=== PATIENT | female | born 1935 | race Caucasian/White ===

== ENCOUNTER 2018-02-08 14:57 | Observation (INO) | payer OTHER ==
--- NOTE | 2018-02-08 15:09 | PDOC ---
Rapid Medical Evaluation Time Seen by Provider: 02/08/18 15:02 Medical Evaluation: Allergies Allergy/AdvReac Type Severity Reaction Status Date / Time No Known Allergies Allergy Verified 08/21/14 22:57 02/08/18 15:05 Pt. presents to the ED from the clinic for an abscess to her R abdomen. Family states that the abscess started one week ago. No area of fluctuance. No PMHX of diabetes. Exam: hard indurated abscess to the R mid abdomen. No fluctance. Pt afebrile Orders: Labs, Urine Pt to proceed to ED for further evaluation. Discharge Disposition - Diagnosis Abscess - Referrals - Patient Instructions - Post Discharge Activity
--- NOTE | 2018-02-08 16:05 | PDOC ---
History of Present Illness - General Chief Complaint: Abscess Boil Stated Complaint: ABSCESS ON ABDOMEN Time Seen by Provider: 02/08/18 15:02 History Source: Patient, Family - History of Present Illness Initial Comments: 02/08/18 15:59 HPI was performed via the patient and her daughter. 82 year old female with PMH of HTN, brain aneurysm presents to ED complaining of abscess x1 week. She states it has been increasing in size and becoming more red over the last week. She denies fever, chills, nausea, vomiting, lightheadedness, chest pain, shortness of breath. She denies discharge from the abscess but says it has bled. Past History - Past Medical History Allergies/Adverse Reactions: Allergies Allergy/AdvReac Type Severity Reaction Status Date / Time No Known Allergies Allergy Verified 02/08/18 15:02 Home Medications: Ambulatory Orders Acetaminophen [Tylenol -] 500 mg PO Q8H 02/08/18 Amlodipine Besylate [Norvasc -] 2.5 mg PO DAILY 02/08/18 Aspirin [ASA -] 81 mg PO DAILY 02/08/18 Atorvastatin Ca [Lipitor] 40 mg PO HS 02/08/18 Calcium Carbonate [Super Calcium] 600 mg PO DAILY 02/08/18 Magnesium Oxide 500 mg PO DAILY 02/08/18 Melatonin 10 mg PO HS 02/08/18 Riboflavin (Vitamin B2) [Vitamin B-2] 100 mg PO DAILY 02/08/18 COPD: No HTN: Yes Hypercholesterolemia: Yes - Immunization History Immunization Up to Date: Yes - Suicide/Smoking/Psychosocial Hx Smoking Status: No Smoking History: Never smoked Number of Cigarettes Smoked Daily: 0 Hx Alcohol Use: No Review of Systems - Review of Systems Able to Perform ROS?: Yes Comments:: 02/08/18 16:01 General: denies fever, chills, night sweats, generalized weakness. HEENT: denies sore throat, rhinorrhea, ear pain. Heart: denies chest pain, palpitations, syncope, lower extremity swelling. Respiratory: denies shortness of breath, cough, sputum production, hematemesis. Abdomen: denies abdominal pain, nausea, vomiting, diarrhea, constipation, blood in stool. : denies dysuria, urinary frequency, hematuria. Musculoskeletal: denies joint pain, muscle pain, joint swelling. Neurological: denies headache, dizziness, numbness, tingling. Skin: admits to abscess. *Physical Exam - Vital Signs Last Vital Signs Temp Pulse Resp BP Pulse Ox 97.6 F 69 20 126/56 100 02/08/18 15:03 02/08/18 15:03 02/08/18 15:03 02/08/18 15:03 02/08/18 15:03 - Physical Exam Comments: 02/08/18 16:02 Appearance: comfortable. HEENT: head is normocephalic, atraumatic. EOMI. PERRLA. Neck: supple without lymphadenopathy Heart: regular rhythm. no murmurs, rubs or gallops. Lungs: clear to auscultation bilaterally. no crackles, rhonchi or wheezing. no stridor. Abdomen: soft, nontender. normal bowel sounds. no rebound, guarding, masses. Extremities: Peripheral pulses intact. No lower extremity edema. Neurological: Alert. Oriented x3. CN 2-12 grossly intact. Moves all four extremities. Skin: 5x7 mm abscess noted to right upper quandrant. No fluctuance. Indurated with surrounding erythema. irregular borders. ED Treatment Course - LABORATORY CBC & Chemistry Diagram: 02/08/18 15:09 02/08/18 15:09 Medical Decision Making - Medical Decision Making 02/08/18 16:04 82 year old female with PMH HTN and brain aneurysms presents to ED today complaining of progressing abscess over one week without fever, chills, nausea, vomiting, lightheadedness. Initial Vital Signs Temp Pulse Resp BP Pulse Ox 97.6 F 69 20 126/56 100 02/08/18 15:03 02/08/18 15:03 02/08/18 15:03 02/08/18 15:03 02/08/18 15:03 Afebrile. No tachycardia. No hypotension. Pending labs, blood cultures, EKG. 02/08/18 16:34 Bedside ultrasound performed with Dr. Fischer. [place] and 1.7x1.6 underlying abscess 3 cm below skin surface with multiple pockets and no confluence noted. 02/08/18 19:25 Leukocytosis 14.7 Pt will be admitted for cellulitis and abscess requiring IV antibiotics. *DC/Admit/Observation/Transfer Diagnosis at time of Disposition: Abscess - Discharge Dispostion Decision to Admit order: Yes - Referrals - Patient Instructions - Post Discharge Activity
--- NOTE | 2018-02-08 16:20 | PDOC ---
Attending Attestation - HPI HPI: 02/08/18 16:42 The patient is an 82-year-old female, with a past medical history of HTN, hypercholesterolemia, and brain aneurysm, who presents to the ED with an right upper quadrant abscess that began 1 week ago. The abscess has been becoming progressively more large and erythematous over the last few days. The patient denies any fever, chills, nausea, vomiting, diarrhea, or abdominal pain. Denies any chest pain or shortness of breath. Allergies: NKA - Physicial Exam PE: 02/08/18 16:58 GENERAL: Awake, alert, and fully oriented, in no acute distress HEAD: No signs of trauma EYES: PERRLA, EOMI, sclera anicteric, conjunctiva clear ENT: Auricles normal inspection, hearing grossly normal, nares patent, oropharynx clear without exudates. Moist mucosa NECK: Normal ROM, supple, no lymphadenopathy, JVD, or masses LUNGS: Breath sounds equal, clear to auscultation bilaterally. No wheezes, and no crackles HEART: Regular rate and rhythm, normal S1 and S2, no murmurs, rubs or gallops ABDOMEN: (+)RUQ: There is a 5x7cm warm, erythematous, indurated, potential abscess. No areas of flunctuance. Soft, nontender, normoactive bowel sounds. No guarding, no rebound. EXTREMITIES: Normal range of motion, no edema. No clubbing or cyanosis. No cords, erythema, or tenderness NEUROLOGICAL: Cranial nerves II through XII grossly intact. Normal speech, normal gait SKIN: Warm, Dry, normal turgor, no rashes or lesions noted <Gia Chamorro - Last Filed: 02/08/18 16:57> - Resident Resident Name: Kellie Raymond - ED Attending Attestation I have performed the following: I have examined & evaluated the patient, The case was reviewed & discussed with the resident, I agree w/resident's findings & plan, Exceptions are as noted - Medical Decision Making 02/08/18 16:20 I, Dr. Amaris Fischer, DO, attest that this document has been prepared under my direction and personally reviewed by me in its entirety. I further attest, that it accurately reflects all work, treatment, procedures and medical decision -making performed by me. 02/08/18 16:34 a/p: 82yo female with R upper abd abscess/fluctuance/induration -subjective fevers at home -no drainage -7x5cm in size, indurated -bedside ultrasound shows small abscess 1.7x1.6cm about 3cm below the skin - multiple pockets- not confluent -concern for MRSA potential abscess -will start iv abx -warm compresses -obs overnight -no PMD -will place on SYMPHONY OBS 02/08/18 18:09 case discussed with [facility] who requested consult to Dr. Merino accepts pt to obs <Amaris Fischer - Last Filed: 02/08/18 18:09> Heart Score/ECG Review - ECG Intrepretation Comment:: 02/08/18 16:41 sinus at 61, incomplete RBBB, l espinal axis, no acute st/t wave findings <Amaris Fischer - Last Filed: 02/08/18 18:09> Attestations - Attestations 02/08/18 17:01 Documentation prepared by Gia Chamorro, acting as emergency medical technician basic for Amaris Fischer DO. <Gia Chamorro - Last Filed: 02/08/18 16:57>
[2018-02-08 16:40] LABS: ALBUMIN 3.9 g/dl (3.4-5.0); ALK PHOS 98 U/L (45-117); ANION GAP 7 (8-16); BILIRUBIN,TOTAL 0.9 mg/dL (0.2-1.0); BLOOD UREA NITROGEN 15 mg/dL (7-18); CALCIUM 9.2 mg/dL (8.5-10.1); CHLORIDE 106 mmol/L (98-107); CO2 29 mmol/L (21-32); CREATININE 0.8 mg/dL (0.55-1.02); GLUCOSE,RANDOM 99 mg/dL (74-106); POTASSIUM 4.5 mmol/L (3.5-5.1); SGOT/AST 15 U/L (15-37); SGPT/ALT 17 U/L (12-78); SODIUM 142 mmol/L (136-145); TOT PROT 7.5 g/dl (6.4-8.2)
[2018-02-08 16:40] LABS: INR 1.13 (0.82-1.09); PROTHROMBIN TIME (PATIENT) 12.8 SEC (9.7-13.0)
[2018-02-08] MEDS ORDERED: VANCOMYCIN 1,000 MG in DEXTROSE 5%-WATER - 250 ML IVPB ONE (16:42)
[2018-02-08] MEDS ORDERED: VANCOMYCIN 1 GRAM (PRE-DOCKED) 1,000 MG/250 ML BAG IVPB ONE (17:54)
[2018-02-08 18:00] LABS: BASO % 0.4 % (0-2.0); EOS % 0.5 % (0-4.5); HEMATOCRIT 36.1 % (32.4-45.2); HEMOGLOBIN 11.7 GM/dL (10.7-15.3); LYMPH % 13.9 % (8-40); MCH 28.8 pg (25.7-33.7); MCHC 32.4 g/dl (32.0-36.0); MEAN CELL VOLUME 89.1 fl (80-96); MEAN PLT VOLUME 11.4 fl (7.5-11.1); NEUT % 78.2 % (42.8-82.8); PLATELET COUNT 234 K/MM3 (134-434); RBC 4.05 M/mm3 (3.60-5.2); RDW 13.2 % (11.6-15.6); WHITE BLOOD COUNT 14.7 K/mm3 (4.0-10.0)
[2018-02-08 18:44] LABS: URINE APPEARANCE CLEAR; URINE BILIRUBIN NEGATIVE (<2.0 mg/dL); URINE COLOR YELLOW; URINE GLUCOSE (UA) NEGATIVE (NEGATIVE); URINE KETONE NEGATIVE (NEGATIVE); URINE NITRITE NEGATIVE (NEGATIVE); URINE PROTEIN NEGATIVE (NEGATIVE); URINE UROBILINOGEN NEGATIVE mg/dL (0.2-1.0)
[2018-02-08 18:45] LABS: URINE LEUK ESTERASE 3+ (NEGATIVE)
[2018-02-08 18:51] LABS: EPI CELLS RARE /HPF (FEW); URINE MUCUS RARE
--- NOTE | 2018-02-08 21:58 | HP ---
CHIEF COMPLAINT: cyst on abdomen PCP: HISTORY OF PRESENT ILLNESS: 82 y/o female with PMH HTN, HLD, brain aneyrysm presents with complaint of worsening abscess over right upper quadrant abdomen. Began one week ago as a small nolasco pimple that she admits to attempting to squeeze. She admits bloody discharge. The size has gradually progressed with associated induration and erythema. States her friend attempted to open a capsule of unknown antibiotic and sprinkled over the wound, which was not palliative. Admits to pinching pain localized to the wound that has been constant, exacerbated with movement. Has also taken one tablet unknown dosage of tylenol which was temporarily palliative. Denies fevers, chills, shortness of breath, chest pain, abdominal pain, nausea, vomiting, diarrhea, constipation. ER course was notable for: (1) Vancomycin- patient complained of itchyness of face and head, was given benadryl which resolved the symptoms. (2) (3) Recent Travel: PAST MEDICAL HISTORY: HTN, HLD, brain aneyrysm PAST SURGICAL HISTORY: brain aneyrsym repair in Social History: Smoking: admits to smoking 4-5 cigarettes Alcohol: denies Drugs: denies Family History: Allergies No Known Allergies Allergy (Verified 02/08/18 15:02) HOME MEDICATIONS: Home Medications Medication Instructions Recorded Acetaminophen [Tylenol -] 500 mg PO Q8H 02/08/18 Amlodipine Besylate [Norvasc -] 2.5 mg PO DAILY 02/08/18 Aspirin [ASA -] 81 mg PO DAILY 02/08/18 Atorvastatin Ca [Lipitor] 40 mg PO HS 02/08/18 Calcium Carbonate [Super Calcium] 600 mg PO DAILY 02/08/18 Magnesium Oxide 500 mg PO DAILY 02/08/18 Melatonin 10 mg PO HS 02/08/18 Riboflavin (Vitamin B2) [Vitamin 100 mg PO DAILY 02/08/18 B-2] REVIEW OF SYSTEMS As per HPI PHYSICAL EXAMINATION Vital Signs - 24 hr 02/08/18 02/08/18 15:03 20:06 Temperature 97.6 F 98.7 F Pulse Rate 69 Pulse Rate [ 72 Left Radial] Respiratory 20 16 Rate Blood Pressure 126/56 Blood Pressure 144/56 [Right Arm] O2 Sat by Pulse 100 Oximetry (%) GENERAL: Awake, alert, and fully oriented, in no acute distress. HEAD: Normal with no signs of trauma. EYES: Pupils equal, round and reactive to light, extraocular movements intact, sclera anicteric, conjunctiva clear. EARS, NOSE, THROAT: Ears normal, nares patent, oropharynx clear without exudates. Moist mucous membranes. NECK: Normal range of motion, supple without lymphadenopathy. LUNGS: Breath sounds equal, clear to auscultation bilaterally. No wheezes, and no crackles. No accessory muscle use. HEART: Regular rate and rhythm, normal S1 and S2 with holosystolic murmur, rub or gallop. ABDOMEN: Soft, nontender, not distended, normoactive bowel sounds, no guarding, no rebound, no masses. MUSCULOSKELETAL: Normal range of motion at all joints. No bony deformities or tenderness. No CVA tenderness. EXTREMITIES: 2+ pulses, warm, well-perfused. No cyanosis. 1+ lower extremity peripheral edema. NEUROLOGICAL: Cranial nerves II-XII intact. Normal speech. PSYCHIATRIC: Cooperative. Appropriate mood and affect. SKIN: Abscess: Erythema 8cm X 4cm right upper quadrant abdomen with central induration of 3cm X 3cm. Nodular, with multiple points of bloody and purulent discharge. Tender to palpation. Laboratory Results - last 24 hr 02/08/18 02/08/18 02/08/18 15:09 15:09 15:10 WBC 14.7 H RBC 4.05 Hgb 11.7 Hct 36.1 MCV 89.1 MCH 28.8 MCHC 32.4 RDW 13.2 Plt Count 234 MPV 11.4 H Absolute Neuts (auto) 11.5 Neutrophils % 78.2 Lymphocytes % 13.9 Monocytes % 7.0 Eosinophils % 0.5 Basophils % 0.4 Nucleated RBC % 0 PT with INR INR Sodium 142 Potassium 4.5 Chloride 106 Carbon Dioxide 29 Anion Gap 7 L BUN 15 Creatinine 0.8 Creat Clearance w eGFR > 60 Random Glucose 99 Lactic Acid 0.9 Calcium 9.2 Total Bilirubin 0.9 AST 15 ALT 17 Alkaline Phosphatase 98 Total Protein 7.5 Albumin 3.9 Urine Color Urine Appearance Urine pH Ur Specific [place] Urine Protein Urine Glucose (UA) Urine Ketones Urine Blood Urine Nitrite Urine Bilirubin Urine Urobilinogen Ur Leukocyte Esterase Urine WBC (Auto) Urine RBC (Auto) Ur Epithelial Cells Urine Mucus 02/08/18 02/08/18 16:05 17:50 WBC RBC Hgb Hct MCV MCH MCHC RDW Plt Count MPV Absolute Neuts (auto) Neutrophils % Lymphocytes % Monocytes % Eosinophils % Basophils % Nucleated RBC % PT with INR 12.80 INR 1.13 Sodium Potassium Chloride Carbon Dioxide Anion Gap BUN Creatinine Creat Clearance w eGFR Random Glucose Lactic Acid Calcium Total Bilirubin AST ALT Alkaline Phosphatase Total Protein Albumin Urine Color Yellow Urine Appearance Clear Urine pH 6.0 Ur Specific [place] 1.020 Urine Protein Negative Urine Glucose (UA) Negative Urine Ketones Negative Urine Blood 2+ H Urine Nitrite Negative Urine Bilirubin Negative Urine Urobilinogen Negative Ur Leukocyte Esterase 3+ H Urine WBC (Auto) 15 Urine RBC (Auto) 3 Ur Epithelial Cells Rare Urine Mucus Rare ASSESSMENT/PLAN: 82 y/o female with PMH HTN, HLD, brain aneyrysm presents with complaint of worsening abscess over right upper quadrant abdomen. RUQ skin abscess -Clindamycin -Warm compress -Surgical consult requested for I&D -Percoset 5/325 Q8 PRN HTN -Continue Norvasc HLD -Continue Lipitor FEN -Patient can tolerate PO fluids -Electrolytes WNL -Sodium controlled diet Prophylaxis- Heparin 5000u subq tid Disposition: Observation Advance directives: Full code Case discussed with coke production heater attending Visit type - Emergency Visit Emergency Visit: Yes ED Registration Date: 02/08/18 Care time: The patient presented to the Emergency Department on the above date and was hospitalized for further evaluation of their emergent condition. - New Patient This patient is new to me today: Yes Date on this admission: 02/09/18 - Critical Care Critical Care patient: No Hospitalist Screening - Colonoscopy Questionnaire Colonoscopy Questionnaire: Colonoscopy Questionnaire - Patient: 50 - 75 years old and never had a screening colonoscopy: Unknown History of colon or rectal polyps, or CA: Unknown History of IBD, Crohn's disease or UC: Unknown History of abdominal radiation therapy as a child: Unknown - Relative: 1 with colon or rectal CA, or polyps at age 60 or younger: Unknown Colon or rectal CA diagnosed at age 45 or younger: Unknown Multiple relatives with colon or rectal CA: Unknown - Outcome: Screening Result: Negative Screen
[2018-02-08] MEDS: ACETAMINOPHEN 325 MG TABLET (FP) PO PRN (22:44)
[2018-02-08] MEDS: CLINDAMYCIN 600MG PREMIX IVPB 600 MG/50 ML BAG IVPB SCH (22:44)
[2018-02-09 00:08] VITALS: BMI 31.8
[2018-02-09] MEDS: CLINDAMYCIN 600MG PREMIX IVPB 600 MG/50 ML BAG IVPB SCH ×3 (02:03→17:31)
--- NOTE | 2018-02-09 05:15 | CONSULT ---
Consult Consult Specialty:: general surgery Referred by:: Winston Reason for Consultation:: Abdominal abscess - History of Present Illness Chief Complaint: abdominal abscess History of Present Illness: 82 yo female PMH HTN, HLD, brain aneurysm presents with complaint of worsening abscess over right upper quadrant abdomen. Began one week ago as a small nolasco pimple that she admits to attempting to squeeze. She admits bloody discharge. The size has gradually progressed with associated induration and erythema. States her friend attempted to open a capsule of unknown antibiotic and sprinkled over the wound, which was not palliative. Admits to pinching pain localized to the wound that has been constant, exacerbated with movement. Has also taken one tablet unknown dosage of tylenol which was temporarily palliative. Denies fevers and chills. We were asked to assess. - History Source History Provided By: Patient, Medical Record Limitations to Obtaining History: No Limitations - Alcohol/Substance Use Hx Alcohol Use: No - Smoking History Smoking history: Never smoked Have you smoked in the past 12 months: No Aproximately how many cigarettes per day: 0 Home Medications - Allergies Allergies/Adverse Reactions: Allergies Allergy/AdvReac Type Severity Reaction Status Date / Time No Known Allergies Allergy Verified 02/08/18 15:02 - Home Medications Home Medications: Ambulatory Orders Acetaminophen [Tylenol -] 500 mg PO Q8H 02/08/18 Amlodipine Besylate [Norvasc -] 2.5 mg PO DAILY 02/08/18 Aspirin [ASA -] 81 mg PO DAILY 02/08/18 Atorvastatin Ca [Lipitor] 40 mg PO HS 02/08/18 Calcium Carbonate [Super Calcium] 600 mg PO DAILY 02/08/18 Magnesium Oxide 500 mg PO DAILY 02/08/18 Melatonin 10 mg PO HS 02/08/18 Riboflavin (Vitamin B2) [Vitamin B-2] 100 mg PO DAILY 02/08/18 Review of Systems - Review of Systems Constitutional: denies: Chills, Fever Eyes: denies: Blurred Vision, Recent Change in Vision HENT: denies: Difficult Swallowing, Throat Pain Neck: denies: Pain on Movement, Tenderness Cardiovascular: denies: Chest Pain, Palpitations Respiratory: denies: Cough, SOB Genitourinary: denies: Discharge, Dysuria Breasts: reports: No Symptoms Reported. denies: Pain Musculoskeletal: denies: Muscle Pain, Muscle Weakness Integumentary: reports: Erythema Neurological: denies: Seizure, Syncope Endocrine: denies: Unexplained Weight Gain, Unexplained Weight Loss Hematology/Lymphatic: denies: Easily Bruised, Excessive Bleeding Psychiatric: denies: Anxiety, Depression Physical Exam Vital Signs: Vital Signs Temperature 99.2 F 02/09/18 02:00 Pulse Rate 69 02/09/18 02:00 Respiratory Rate 20 02/09/18 02:00 Blood Pressure 124/63 02/09/18 02:00 O2 Sat by Pulse Oximetry (%) 100 02/08/18 15:03 Constitutional: Yes: No Distress, Calm, Obese Cardiovascular: Yes: Regular Rate and Rhythm Respiratory: Yes: Regular, CTA Bilaterally Gastrointestinal: Yes: Normal Bowel Sounds, Soft, Abdomen, Obese, Tenderness ( RUQ, 8X8cm patch of erythema and induration with a central carbuncle). No: Hernia ...Rectal Exam: Yes: Deferred Renal/: No: CVA Tenderness - Left, CVA Tenderness - Right Extremities: No: Cool, Cyanosis Wound/Incision: Yes: Draining, Reddened (RUQ, 8X8cm patch of erythema and induration with a central carbuncle) Neurological: Yes: Alert, Oriented Psychiatric: Yes: Alert, Oriented Labs: CBC, BMP 02/08/18 15:09 02/08/18 15:09 Imaging - Results Chest X-ray: Report Reviewed, Image Reviewed Problem List - Problems (1) Carbuncle and furuncle of trunk Assessment/Plan: 82yo female MMP non-diabetic IVF hydration empiric IV antibitics ID consult Bedside I&D of abdominal wall abscess Discussed with patient risks, benefits and alternatives of aforementioned procedure, including but not limited to bleeding, infection, need for further procedures, ; alternatives include antibiotics, delayed or no surgery - risks of this include failure of nonoperative therapy, sepsis, recurrence, . Patient desires to proceed with operation - will take to OR for above. Informed consent signed for same. Thank you for the opportunity to participate in the care of this patient. Code(s): L02.229 - FURUNCLE OF TRUNK, UNSPECIFIED (2) Obesity (BMI 30.0-34.9) Code(s): E66.9 - OBESITY, UNSPECIFIED (3) Vertigo Code(s): R42 - DIZZINESS AND GIDDINESS (4) HTN (hypertension) Code(s): I10 - ESSENTIAL (PRIMARY) HYPERTENSION Qualifiers: Hypertension type: essential hypertension Qualified Code(s): I10 - Essential (primary) hypertension (5) HLD (hyperlipidemia) Code(s): E78.5 - HYPERLIPIDEMIA, UNSPECIFIED
--- NOTE | 2018-02-09 06:25 | PN ---
Teaching Attending Note Name of Resident: Gerardo Han ATTENDING PHYSICIAN STATEMENT I saw and evaluated the patient. I reviewed the resident's note and discussed the case with the resident. I agree with the resident's findings and plan as documented. SUBJECTIVE: 82 y/o F presented to ED c/o RUQ abscess, with redness and pain. OBJECTIVE: GEN: A&Ox3 in mild distress, afebrile HEENT: NC, PERRLA, EOMI CVS: RRR Lungs: CTA, no wheezing Abd: RUQ with 5cm erythematous induration with papular lesion 2.5cm in the center with multiple pinpoint areas with purulent and sanguinous drainage, tender. Ext: nl ROM CBCD WBC 14.7 K/mm3 (4.0-10.0) H 02/08/18 15:09 RBC 4.05 M/mm3 (3.60-5.2) 02/08/18 15:09 Hgb 11.7 GM/dL (10.7-15.3) 02/08/18 15:09 Hct 36.1 % (32.4-45.2) 02/08/18 15:09 MCV 89.1 fl (80-96) 02/08/18 15:09 MCHC 32.4 g/dl (32.0-36.0) 02/08/18 15:09 RDW 13.2 % (11.6-15.6) 02/08/18 15:09 Plt Count 234 K/MM3 (134-434) 02/08/18 15:09 MPV 11.4 fl (7.5-11.1) H 02/08/18 15:09 CMP Sodium 142 mmol/L (136-145) 02/08/18 15:09 Potassium 4.5 mmol/L (3.5-5.1) 02/08/18 15:09 Chloride 106 mmol/L (98-107) 02/08/18 15:09 Carbon Dioxide 29 mmol/L (21-32) 02/08/18 15:09 Anion Gap 7 (8-16) L 02/08/18 15:09 BUN 15 mg/dL (7-18) 02/08/18 15:09 Creatinine 0.8 mg/dL (0.55-1.02) 02/08/18 15:09 Creat Clearance w eGFR > 60 (>60) 02/08/18 15:09 Calcium 9.2 mg/dL (8.5-10.1) 02/08/18 15:09 Total Bilirubin 0.9 mg/dL (0.2-1.0) 02/08/18 15:09 AST 15 U/L (15-37) 02/08/18 15:09 ALT 17 U/L (12-78) 02/08/18 15:09 Alkaline Phosphatase 98 U/L (45-117) 02/08/18 15:09 Total Protein 7.5 g/dl (6.4-8.2) 02/08/18 15:09 Albumin 3.9 g/dl (3.4-5.0) 02/08/18 15:09 ASSESSMENT AND PLAN: Abdominal Abscess- Admit for IV antibiotics clindamycin and surgery consult for I&D. percocet PRN for pain Continue home medications.
[2018-02-09] MEDS: HEPARIN NA (PORCINE) 5,000 UNITS/ML 1ML VIAL SQ SCH ×3 (06:26→22:23)
[2018-02-09 07:25] LABS: BASO % 0.5 % (0-2.0); HEMATOCRIT 33.5 % (32.4-45.2); HEMOGLOBIN 11.1 GM/dL (10.7-15.3); LYMPH % 17.2 % (8-40); MCH 29.3 pg (25.7-33.7); MCHC 33.2 g/dl (32.0-36.0); MEAN CELL VOLUME 88.5 fl (80-96); MEAN PLT VOLUME 10.9 fl (7.5-11.1); MONO % 9.5 % (3.8-10.2); NEUT % 71.8 % (42.8-82.8); PLATELET COUNT 195 K/MM3 (134-434); RBC 3.79 M/mm3 (3.60-5.2); RDW 13.5 % (11.6-15.6); WHITE BLOOD COUNT 15.7 K/mm3 (4.0-10.0)
[2018-02-09 07:33] LABS: ALBUMIN 3.3 g/dl (3.4-5.0); ANION GAP 8 (8-16); BLOOD UREA NITROGEN 16 mg/dL (7-18); CALCIUM 8.8 mg/dL (8.5-10.1); CHLORIDE 105 mmol/L (98-107); CO2 28 mmol/L (21-32); GLUCOSE,RANDOM 97 mg/dL (74-106); POTASSIUM 4.3 mmol/L (3.5-5.1); SODIUM 141 mmol/L (136-145)
[2018-02-09 07:39] LABS: ALK PHOS 88 U/L (45-117); BILIRUBIN,TOTAL 0.8 mg/dL (0.2-1.0); CREATININE 0.8 mg/dL (0.55-1.02); SGOT/AST 12 U/L (15-37); SGPT/ALT 15 U/L (12-78); TOT PROT 6.5 g/dl (6.4-8.2)
[2018-02-09] MEDS ORDERED: LIDOCAINE HCL 1%, 10 MG/ML (50 mL VIAL) SQ ONE (08:57)
--- NOTE | 2018-02-09 09:11 | PROC ---
Incision and Drainage Indication/Location: Right abdominal wall abscess/ carbuncle draining spontaneously Risks and Benefits Explained: Yes Consent on Chart: Yes Betadine cleansed: Yes Anesthesia: 1% Lidocaine Blade Size: 10 Drainage: 5ml non-foul smelling pus, culture sent Irrigated with Normal Saline: Yes Iodinated Packin/2 in Sterile Dressing Applied: Yes
[2018-02-09] MEDS ORDERED: LIDOCAINE HCL 1%, 10 MG/ML (20ML VIAL) ONE (09:31)
[2018-02-09] MEDS: amLODIPine BESYLATE 2.5 MG TABLET (FP) PO SCH (10:37)
--- NOTE | 2018-02-09 13:47 | ECHO ---
Name: YELENA SORTO Exam:Adult Echocardiogram Study Date: 02/09/2018 11:40 AM Age: 82 yrs Reason For Study: Monse Height: 64 in Weight: 185 lb BSA: 1.9 m2 MMode/2D Measurements & Calculations IVSd: 1.0 cm Ao root diam: 2.6 cm LVIDd: 4.4 cm LA dimension: 2.5 cm LVIDs: 3.0 cm LVPWd: 1.0 cm EDV(Teich): 89.5 ml LAV (MOD-bp): 45.2 ml ESV(Teich): 33.6 ml Doppler Measurements & Calculations MV E max bandar: 71.0 cm/sec Ao V2 max: 286.5 cm/sec MV A max bandar: 93.0 cm/sec Ao max P.8 mmHg MV E/A: 0.76 Ao V2 mean: 186.3 cm/sec MV dec time: 0.37 sec Ao mean P.4 mmHg Ao V2 VTI: 59.0 cm AI P1/2t: 384.0 msec AI max badnar: 416.0 cm/sec LV V1 max P.0 mmHg AI max P.2 mmHg LV V1 mean P.3 mmHg LV V1 max: 99.9 cm/sec AI dec slope: 317.3 cm/sec2 LV V1 mean: 72.7 cm/sec LV V1 VTI: 23.3 cm TR max bandar: 260.8 cm/sec Med Peak E' Bandar: 11.0 cm/sec TR max P.3 mmHg Med E/e': 6.5 Lat Peak E' Bandar: 9.2 cm/sec Lat E/e': 7.7 Procedure A complete two-dimensional transthoracic echocardiogram was performed (2D, M-mode, Doppler and color flow Doppler). Left Ventricle The left ventricular size, thickness and function are normal. The left ventricular ejection fraction is normal. Ejection Fraction = 60-65%. The left ventricular wall motion is normal. Right Ventricle The right ventricle is normal in size and function. Atria Normal left and right atrial size and function. Mitral Valve There is mild mitral regurgitation. Tricuspid Valve There is trace tricuspid regurgitation. Right ventricular systolic pressure is normal. Aortic Valve Mild to moderate valvular aortic stenosis. Mild to moderate aortic regurgitation. Pulmonic Valve There is no pulmonic valvular regurgitation. Great Vessels The aortic root is normal size. Pericardium/Pleura There is no pericardial effusion. Interpretation Summary The left ventricular size, thickness and function are normal. The right ventricle is normal in size and function. There is mild mitral regurgitation. There is trace tricuspid regurgitation. Mild to moderate valvular aortic stenosis. Mild to moderate aortic regurgitation. MD Mateo Ferris 02/09/2018 01:46 PM
--- NOTE | 2018-02-09 14:31 | EKG ---
Test Reason : Blood Pressure : / mmHG Vent. Rate : 061 BPM Atrial Rate : 061 BPM P-R Int : 136 ms QRS Dur : 104 ms QT Int : 420 ms P-R-T Axes : 049 -14 009 degrees QTc Int : 422 ms NORMAL SINUS RHYTHM INCOMPLETE RIGHT BUNDLE BRANCH BLOCK BORDERLINE ECG WHEN COMPARED WITH ECG OF 29-SEP-2010 22:57, INCOMPLETE RIGHT BUNDLE BRANCH BLOCK IS NOW PRESENT MINIMAL CRITERIA FOR ANTERIOR INFARCT ARE NO LONGER PRESENT Confirmed by ASHLEY PORTER MD ([id number]) on 02/09/2018 2:31:15 PM Referred By: Confirmed By:ASHLEY PORTER MD
--- NOTE | 2018-02-09 15:06 | PN ---
Physical Exam: SUBJECTIVE: Patient seen and examined this morning at bedside. Says she is feeling better since admission. Denies fevers, chills, chest pain, SOB, nausea, vomiting, diarrhea, constipation. OBJECTIVE: Vital Signs Period Temp Pulse Resp BP Sys/Blum Pulse Ox Last 24 Hr 97.6 F-99.2 F 63-73 16-20 124-144/50-63 100 GENERAL: The patient is awake, alert, and fully oriented, in no acute distress. LUNGS: Breath sounds equal, clear to auscultation bilaterally, no wheezes, no crackles HEART: Regular rate and rhythm, S1, S2, Holosystolic murmur. No rub or gallop. ABDOMEN: Soft, nontender, nondistended, normoactive bowel sounds EXTREMITIES: 2+ pulses, 1+ edema b/l SKIN: Superfiscial RUQ Abscess with surrounding erythema measuring 7cm X 4cm, Central induration with purulent and bloody discharge, Tender to palpation, without surrounding swelling Laboratory Results - last 24 hr 02/08/18 02/08/18 02/08/18 15:09 15:09 15:10 WBC 14.7 H RBC 4.05 Hgb 11.7 Hct 36.1 MCV 89.1 MCH 28.8 MCHC 32.4 RDW 13.2 Plt Count 234 MPV 11.4 H Absolute Neuts (auto) 11.5 Neutrophils % 78.2 Lymphocytes % 13.9 Monocytes % 7.0 Eosinophils % 0.5 Basophils % 0.4 Nucleated RBC % 0 PT with INR INR Sodium 142 Potassium 4.5 Chloride 106 Carbon Dioxide 29 Anion Gap 7 L BUN 15 Creatinine 0.8 Creat Clearance w eGFR > 60 Random Glucose 99 Lactic Acid 0.9 Calcium 9.2 Total Bilirubin 0.9 AST 15 ALT 17 Alkaline Phosphatase 98 Total Protein 7.5 Albumin 3.9 Urine Color Urine Appearance Urine pH Ur Specific [place] Urine Protein Urine Glucose (UA) Urine Ketones Urine Blood Urine Nitrite Urine Bilirubin Urine Urobilinogen Ur Leukocyte Esterase Urine WBC (Auto) Urine RBC (Auto) Ur Epithelial Cells Urine Mucus Blood Type Antibody Screen Antibody Identification Antigen Identification 02/08/18 02/08/18 02/09/18 16:05 17:50 06:30 WBC 15.7 H RBC 3.79 Hgb 11.1 Hct 33.5 MCV 88.5 MCH 29.3 MCHC 33.2 RDW 13.5 Plt Count 195 MPV 10.9 Absolute Neuts (auto) 11.3 Neutrophils % 71.8 Lymphocytes % 17.2 D Monocytes % 9.5 Eosinophils % 1.0 D Basophils % 0.5 Nucleated RBC % 0 PT with INR 12.80 INR 1.13 Sodium Potassium Chloride Carbon Dioxide Anion Gap BUN Creatinine Creat Clearance w eGFR Random Glucose Lactic Acid Calcium Total Bilirubin AST ALT Alkaline Phosphatase Total Protein Albumin Urine Color Yellow Urine Appearance Clear Urine pH 6.0 Ur Specific [place] 1.020 Urine Protein Negative Urine Glucose (UA) Negative Urine Ketones Negative Urine Blood 2+ H Urine Nitrite Negative Urine Bilirubin Negative Urine Urobilinogen Negative Ur Leukocyte Esterase 3+ H Urine WBC (Auto) 15 Urine RBC (Auto) 3 Ur Epithelial Cells Rare Urine Mucus Rare Blood Type Antibody Screen Antibody Identification Antigen Identification 02/09/18 02/09/18 02/09/18 06:30 06:30 08:20 WBC RBC Hgb Hct MCV MCH MCHC RDW Plt Count MPV Absolute Neuts (auto) Neutrophils % Lymphocytes % Monocytes % Eosinophils % Basophils % Nucleated RBC % PT with INR INR Sodium 141 Potassium 4.3 Chloride 105 Carbon Dioxide 28 Anion Gap 8 BUN 16 Creatinine 0.8 Creat Clearance w eGFR > 60 Random Glucose 97 Lactic Acid Calcium 8.8 Total Bilirubin 0.8 AST 12 L ALT 15 Alkaline Phosphatase 88 D Total Protein 6.5 Albumin 3.3 L Urine Color Urine Appearance Urine pH Ur Specific [place] Urine Protein Urine Glucose (UA) Urine Ketones Urine Blood Urine Nitrite Urine Bilirubin Urine Urobilinogen Ur Leukocyte Esterase Urine WBC (Auto) Urine RBC (Auto) Ur Epithelial Cells Urine Mucus Blood Type O POSITIVE O POSITIVE Antibody Screen Positive H Antibody Identification Anti-k Antigen Identification K Antigen - NEGATIVE Active Medications Acetaminophen (Tylenol -) 325 mg PO Q8H PRN PRN Reason: PAIN LEVEL 6-10 Last Admin: 02/08/18 22:44 Dose: 325 mg Amlodipine Besylate (Norvasc -) 2.5 mg PO DAILY [facility] Last Admin: 02/09/18 10:37 Dose: 2.5 mg Atorvastatin Calcium (Lipitor -) 40 mg PO HS [facility] Heparin Sodium (Porcine) (Heparin -) 5,000 unit SQ TID [facility] Last Admin: 02/09/18 06:26 Dose: 5,000 unit Clindamycin Phosphate (Cleocin 600 Mg Premix Ivpb -) 600 mg in 50 mls @ 100 mls /hr IVPB Q8H-IV [facility]; Protocol Last Admin: 02/09/18 10:37 Dose: 100 mls/hr Oxycodone HCl (Roxicodone -) 5 mg PO Q8H PRN PRN Reason: PAIN LEVEL 6-10 ASSESSMENT/PLAN: 82 y/o female with PMHx HTN, HLD, brain aneyrysm (surgical repairs in the 90's) presents with complaint of RUQ skin abscess 1. RUQ skin abscess - Surgical consult (Dr. Merino) performed I&D today (02/09), will follow recommendations - Continue Clindamycin 600 mg IVPB Q8H [facility] - Wound Cultures pending - Continue Oxycodone 5 mg PO Q8H PRN - Warm compresses 2. New onset Holosystolic Murmur - Patient says she was never told she has a murmur - Echo: LV and RV Size and function Normal, Mild MR, Trace TR, Mild to moderate aortic stenosis and aortic Regurgitation - Follow up with Cardiology in 1 year 3. Positive UA - UA: Urine Blood 2+, Ur Leukocyte Esterase 3+, Urine WBC 15 - Asymptomatic - No ABx at this time 4. HTN - Continue home dose Norvasc 2.5 mg PO DAILY 5. HLD - Continue home dose Atorvastatin 40 mg PO HS 6. FEN - PO fluids - Lytes WNL - Low Sodium diet 7. PPx - DVT: Heparin 5,000 unit SQ TID Visit type - Emergency Visit Emergency Visit: Yes ED Registration Date: 02/08/18 Care time: The patient presented to the Emergency Department on the above date and was hospitalized for further evaluation of their emergent condition. - New Patient This patient is new to me today: Yes Date on this admission: 02/09/18 - Critical Care Critical Care patient: No
--- NOTE | 2018-02-09 16:38 | PN ---
Teaching Attending Note Name of Resident: Gilda Stoner ATTENDING PHYSICIAN STATEMENT I saw and evaluated the patient. I reviewed the resident's note and discussed the case with the resident. I agree with the resident's findings and plan as documented. SUBJECTIVE:abdominal pain is much improved. denies CP, SOB, fever, chills, N/V/C /D, dysuria, urinary frequency OBJECTIVE: Last Vital Signs Temp Pulse Resp BP Pulse Ox 98.4 F 76 20 129/60 100 02/09/18 14:32 02/09/18 14:32 02/09/18 14:32 02/09/18 14:32 02/08/18 15:03 General NAD CV S1 S2 RRR + holosystolic Murmur lungs CTA B/L no wheezing/rales/rhonchi abdomen soft NT/ND abodminal dressing on RUQ with some dried blood noted on gauze ASSESSMENT AND PLAN: 82yo F wtih PMH HTN, dyslipiemia, brain aneurysm s/p clipping x2 presented tot he ER with RUQ pain which started as a pimple then progressively worsened 1. RUQ abscess- due to initial pimple. s/p bedside I&D by surgery. saw after procedure and bandage not removed. received vanco x1 in the ER. will start clinda. f/u Wcx and Bcx 2. New onset murmur- as per daughter no hx of murmur. will check echo 3. +UA- asymptomatic. will not start abx at this time 4. HTN- controlled 5. dyslipidemai- on statin 6. Osteoporosis- on fosamax weekly 7. DVT ppx- hep sq 8. spoke with daughter present at bedside. all questions answered. verbalized understanding and agreement with plan
[2018-02-09] MEDS: ACETAMINOPHEN 325 MG TABLET (FP) PO PRN (17:31)
[2018-02-09] MEDS: oxyCODONE HCL 5 MG TABLET PO PRN (18:50)
[2018-02-09] MEDS: ATORVASTATIN CA 40 MG TABLET (FP) PO SCH (22:23)
[2018-02-10] MEDS: CLINDAMYCIN 600MG PREMIX IVPB 600 MG/50 ML BAG IVPB SCH ×5 (02:29→18:52)
[2018-02-10] MEDS: ACETAMINOPHEN 325 MG TABLET (FP) PO PRN (06:18)
[2018-02-10] MEDS: HEPARIN NA (PORCINE) 5,000 UNITS/ML 1ML VIAL SQ SCH ×3 (06:19→21:59)
[2018-02-10] MEDS: oxyCODONE HCL 5 MG TABLET PO PRN (06:20)
[2018-02-10 08:23] LABS: BASO % 0.7 % (0-2.0); EOS % 1.1 % (0-4.5); HEMATOCRIT 32.7 % (32.4-45.2); HEMOGLOBIN 10.9 GM/dL (10.7-15.3); LYMPH % 17.6 % (8-40); MCH 29.1 pg (25.7-33.7); MCHC 33.2 g/dl (32.0-36.0); MEAN CELL VOLUME 87.7 fl (80-96); MEAN PLT VOLUME 10.9 fl (7.5-11.1); MONO % 9.6 % (3.8-10.2); PLATELET COUNT 207 K/MM3 (134-434); RBC 3.73 M/mm3 (3.60-5.2); RDW 13.2 % (11.6-15.6); WHITE BLOOD COUNT 14.6 K/mm3 (4.0-10.0)
--- NOTE | 2018-02-10 10:52 | PN ---
Progress Note, Physician Chief Complaint: abdominal wall abscess History of Present Illness: 82 yo female PMH HTN, HLD, brain aneurysm presents with complaint of worsening abscess over right upper quadrant abdomen. Began one week ago as a small nolasco pimple that she admits to attempting to squeeze. She admits bloody discharge. The size has gradually progressed with associated induration and erythema. States her friend attempted to open a capsule of unknown antibiotic and sprinkled over the wound, which was not palliative. Admits to pinching pain localized to the wound that has been constant, exacerbated with movement. Has also taken one tablet unknown dosage of tylenol which was temporarily palliative. Denies fevers and chills. We were asked to assess. - Current Medication List Current Medications: Active Medications Acetaminophen (Tylenol -) 325 mg PO Q8H PRN PRN Reason: PAIN LEVEL 6-10 Last Admin: 02/10/18 06:18 Dose: 325 mg Amlodipine Besylate (Norvasc -) 2.5 mg PO DAILY [facility] Last Admin: 02/09/18 10:37 Dose: 2.5 mg Atorvastatin Calcium (Lipitor -) 40 mg PO HS [facility] Last Admin: 02/09/18 22:23 Dose: 40 mg Heparin Sodium (Porcine) (Heparin -) 5,000 unit SQ TID [facility] Last Admin: 02/10/18 06:19 Dose: 5,000 unit Clindamycin Phosphate (Cleocin 600 Mg Premix Ivpb -) 600 mg in 50 mls @ 100 mls /hr IVPB Q8H-IV [facility]; Protocol Last Admin: 02/10/18 02:29 Dose: 100 mls/hr Oxycodone HCl (Roxicodone -) 5 mg PO Q8H PRN PRN Reason: PAIN LEVEL 6-10 Last Admin: 02/10/18 06:20 Dose: 5 mg - Objective Vital Signs: Vital Signs Temperature 98.2 F 02/10/18 06:00 Pulse Rate 68 02/10/18 06:00 Respiratory Rate 17 02/10/18 06:00 Blood Pressure 112/49 02/10/18 06:00 O2 Sat by Pulse Oximetry (%) 100 02/08/18 15:03 Vital Signs Period Temp Pulse Resp BP Sys/Blum Pulse Ox Last 24 Hr 98.0 F-99.7 F 67-76 17-20 112-129/49-70 Constitutional: Yes: Well Nourished, No Distress Eyes: Yes: Conjunctiva Clear, EOM Intact HENT: Yes: Atraumatic, Normocephalic Neck: Yes: Supple, Trachea Midline Cardiovascular: Yes: Regular Rate and Rhythm, S1, S2 Respiratory: Yes: Regular, CTA Bilaterally Gastrointestinal: Yes: Normal Bowel Sounds, Soft, Abdomen, Obese ...Rectal Exam: Yes: Deferred Genitourinary: No: CVA Tenderness - Left, CVA Tenderness - Right Extremities: No: Cool, Cyanosis Wound/Incision: Yes: Clean/Dry, Reddened (2cm of surrounding erythema), Unapproximated (1.2cm X 1.2cm X 1.0cm cruciate incison clean bases, minimal purulent output) Neurological: Yes: Alert, Oriented Psychiatric: Yes: Alert, Oriented Labs: CBC, BMP 02/10/18 07:15 02/09/18 06:30 INR, PTT INR 1.13 (0.82-1.09) 02/08/18 16:05 Problem List - Problems (1) Carbuncle and furuncle of trunk Assessment/Plan: 82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 s/p I&D of RUQ andominal wall abscess, improved from yesterday IV antibitics per primary Location: RUQ abdominal wall Frequency: once daily Measurement: 1.2cm X 1.2cm X 1.0cm, cruciate incision clean based, minimal purulent drainage, 2cm of surrounding erythema Instructions: 1/2" idodoform packing, 4X4 gauze sponges and tape Discharge panning with VNS or by patient will follow Code(s): L02.229 - FURUNCLE OF TRUNK, UNSPECIFIED (2) Obesity (BMI 30.0-34.9) Code(s): E66.9 - OBESITY, UNSPECIFIED (3) Vertigo Code(s): R42 - DIZZINESS AND GIDDINESS (4) HTN (hypertension) Code(s): I10 - ESSENTIAL (PRIMARY) HYPERTENSION Qualifiers: Hypertension type: essential hypertension Qualified Code(s): I10 - Essential (primary) hypertension (5) HLD (hyperlipidemia) Code(s): E78.5 - HYPERLIPIDEMIA, UNSPECIFIED
[2018-02-10] MEDS: amLODIPine BESYLATE 2.5 MG TABLET (FP) PO SCH (10:58)
--- NOTE | 2018-02-10 14:50 | PN ---
Teaching Attending Note Name of Resident: Gilda Stoner ATTENDING PHYSICIAN STATEMENT I saw and evaluated the patient. I reviewed the resident's note and discussed the case with the resident. I agree with the resident's findings and plan as documented. SUBJECTIVE:pain is controlled with pain medications. denies Cp, SOB, fever, chills, N/V/C/D OBJECTIVE: Last Vital Signs Temp Pulse Resp BP Pulse Ox 98 F 64 20 114/58 100 02/10/18 10:56 02/10/18 10:56 02/10/18 10:56 02/10/18 10:56 02/08/18 15:03 General NAD abdomen soft RUQ with 1x1cm incision with 2cm surrounding erythema. no pus or drainage noted ASSESSMENT AND PLAN: 82yo F wtih PMH HTN, dyslipiemia, brain aneurysm s/p clipping x2 presented tot he ER with RUQ pain which started as a pimple then progressively worsened 1. RUQ abscess- due to initial pimple. s/p bedside I&D 02/09. Cx was not sent after procedure. wound base swab today, but will likely be low yield. on clinda day 2. will monitor for additional 24H then send out on po wiht follow up with surgery. will need VNS to help with wound packing. 2. New onset murmur- mild-mod and AR. will need surveillance echo as outpatient 3. +UA- asymptomatic. will not start abx at this time 4. HTN- controlled 5. dyslipidemai- on statin 6. Osteoporosis- on fosamax weekly 7. DVT ppx- hep sq 8. anticipate d/c home tomorrow
--- NOTE | 2018-02-10 16:29 | PN ---
Physical Exam: SUBJECTIVE: Patient seen and examined this morning at bedside. Denies any pain over the RUQ. As per nursing staff, patient requested pain meds twice over night. Appetite remains intact. Today she does feel constipated, last BM on Tuesday. Denies urinary frequency, urgency, dysuria, hematuria. Denies fevers, chills, chest pain, SOB, nausea, vomiting, diarrhea. OBJECTIVE: Vital Signs Period Temp Pulse Resp BP Sys/Blum Pulse Ox Last 24 Hr 98 F-99.7 F 64-73 17-20 112-132/49-70 GENERAL: The patient is awake, alert, and fully oriented, in no acute distress. LUNGS: Breath sounds equal, clear to auscultation bilaterally, no wheezes, no crackles HEART: Regular rate and rhythm, S1, S2, Holosystolic murmur. No rub or gallop. ABDOMEN: Soft, nontender, nondistended, normoactive bowel sounds SKIN: Bandage covering superfiscial RUQ wound with dried blood visible on guaze. While Dr. Merino changed the dressing, 2cm wound with with surrounding erythema was visualized. No active drainage noted. No tenderness to palpation, No surrounding swelling Laboratory Results - last 24 hr 02/10/18 07:15 WBC 14.6 H RBC 3.73 Hgb 10.9 Hct 32.7 MCV 87.7 MCH 29.1 MCHC 33.2 RDW 13.2 Plt Count 207 MPV 10.9 Absolute Neuts (auto) 10.3 Neutrophils % 71.0 Lymphocytes % 17.6 Monocytes % 9.6 Eosinophils % 1.1 Basophils % 0.7 Nucleated RBC % 0 Active Medications Acetaminophen (Tylenol -) 325 mg PO Q8H PRN PRN Reason: PAIN LEVEL 6-10 Last Admin: 02/10/18 06:18 Dose: 325 mg Amlodipine Besylate (Norvasc -) 2.5 mg PO DAILY [facility] Last Admin: 02/10/18 10:58 Dose: 2.5 mg Atorvastatin Calcium (Lipitor -) 40 mg PO HS [facility] Last Admin: 02/09/18 22:23 Dose: 40 mg Heparin Sodium (Porcine) (Heparin -) 5,000 unit SQ TID [facility] Last Admin: 02/10/18 14:51 Dose: 5,000 unit Clindamycin Phosphate (Cleocin 600 Mg Premix Ivpb -) 600 mg in 50 mls @ 100 mls /hr IVPB Q8H-IV [facility]; Protocol Last Admin: 02/10/18 11:40 Dose: 100 mls/hr Oxycodone HCl (Roxicodone -) 5 mg PO Q8H PRN PRN Reason: PAIN LEVEL 6-10 Last Admin: 02/10/18 06:20 Dose: 5 mg ASSESSMENT/PLAN: 82 y/o female with PMHx HTN, HLD, brain aneyrysm (surgical repairs in the s) presents with complaint of RUQ skin abscess 1. RUQ skin abscess - Surgical consult (Dr. Merino) performed I&D (02/09), will follow recommendations - Continue Day 3 Clindamycin 600 mg Q8H, will need total 10 day course - Wound Cultures pending - Continue Oxycodone 5 mg PO Q8H PRN - Warm compresses 2. New onset Holosystolic Murmur - Patient says she was never told she has a murmur - Echo: LV and RV Size and function Normal, Mild MR, Trace TR, Mild to moderate aortic stenosis and aortic Regurgitation - Follow up with Cardiology in 1 year 3. Positive UA - UA: Urine Blood 2+, Ur Leukocyte Esterase 3+, Urine WBC 15 - Asymptomatic - No ABx at this time 4. HTN - Continue home dose Norvasc 2.5 mg PO DAILY 5. HLD - Continue home dose Atorvastatin 40 mg PO HS 6. FEN - PO fluids - Lytes WNL - Low Sodium diet 7. PPx - DVT: Heparin 5,000 unit SQ TID Dispo: Likely d/c tmrw, PO ABx, will follow up with Surgery outpatient and need VNS for wound dressings Visit type - Emergency Visit Emergency Visit: Yes ED Registration Date: 02/08/18 Care time: The patient presented to the Emergency Department on the above date and was hospitalized for further evaluation of their emergent condition. - New Patient This patient is new to me today: No - Critical Care Critical Care patient: No
[2018-02-10] MEDS: ATORVASTATIN CA 40 MG TABLET (FP) PO SCH (21:59)
[2018-02-11] MEDS: CLINDAMYCIN 600MG PREMIX IVPB 600 MG/50 ML BAG IVPB SCH ×2 (02:13→09:43)
--- NOTE | 2018-02-11 05:17 | PN ---
Progress Note, Physician Chief Complaint: abdominal wall abscess History of Present Illness: 82 yo female PMH HTN, HLD, brain aneurysm presents with complaint of worsening abscess over right upper quadrant abdomen. Began one week ago as a small nolasco pimple that she admits to attempting to squeeze. Feeling improved. - Current Medication List Current Medications: Active Medications Acetaminophen (Tylenol -) 325 mg PO Q8H PRN PRN Reason: PAIN LEVEL 6-10 Last Admin: 02/10/18 06:18 Dose: 325 mg Amlodipine Besylate (Norvasc -) 2.5 mg PO DAILY [facility] Last Admin: 02/10/18 10:58 Dose: 2.5 mg Atorvastatin Calcium (Lipitor -) 40 mg PO HS [facility] Last Admin: 02/10/18 21:59 Dose: 40 mg Heparin Sodium (Porcine) (Heparin -) 5,000 unit SQ TID [facility] Last Admin: 02/10/18 21:59 Dose: 5,000 unit Clindamycin Phosphate (Cleocin 600 Mg Premix Ivpb -) 600 mg in 50 mls @ 100 mls /hr IVPB Q8H-IV [facility]; Protocol Last Admin: 02/11/18 02:13 Dose: 100 mls/hr Oxycodone HCl (Roxicodone -) 5 mg PO Q8H PRN PRN Reason: PAIN LEVEL 6-10 Last Admin: 02/10/18 06:20 Dose: 5 mg - Objective Vital Signs: Vital Signs Temperature 98 F 02/11/18 02:00 Pulse Rate 67 02/11/18 02:00 Respiratory Rate 20 02/11/18 02:00 Blood Pressure 134/61 02/11/18 02:00 O2 Sat by Pulse Oximetry (%) 96 02/10/18 22:00 Vital Signs Period Temp Pulse Resp BP Sys/Blum Pulse Ox Last 24 Hr 98 F-98.2 F 64-75 17-20 112-139/49-72 96-97 Intake & Output 02/10/18 02/10/18 02/11/18 15:59 23:59 07:59 Intake Total 960 790 Balance 960 790 Intake: IVPB 50 50 Oral 910 740 Other: Voiding Method Toilet Toilet # Unmeasured Voids Void 1 2 Bowel Movement No No Constitutional: Yes: Well Nourished, No Distress, Calm, Obese Eyes: Yes: Conjunctiva Clear, EOM Intact HENT: Yes: Atraumatic, Normocephalic Neck: Yes: Supple, Trachea Midline Cardiovascular: Yes: Regular Rate and Rhythm, S1, S2 Respiratory: Yes: Regular, CTA Bilaterally Gastrointestinal: Yes: Normal Bowel Sounds, Soft, Abdomen, Obese ...Rectal Exam: Yes: Deferred Genitourinary: No: CVA Tenderness - Left, CVA Tenderness - Right Extremities: No: Cool, Cyanosis Edema: No Peripheral Pulses WNL: Yes Peripheral Pulses: Left Radial: 2+, Right Radial: 2+, Left Doralis Pedis: 2+, Right Dorsalis Pedis: 2+ Wound/Incision: Yes: Clean/Dry, Draining, Reddened, Unapproximated Neurological: Yes: Alert, Oriented Psychiatric: Yes: Alert, Oriented Labs: CBC, BMP 02/10/18 07:15 02/09/18 06:30 INR, PTT INR 1.13 (0.82-1.09) 02/08/18 16:05 Problem List - Problems (1) Carbuncle and furuncle of trunk Assessment/Plan: 82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#3 s/p I&D of RUQ andominal wall abscess, improved from yesterday IV antibitics per primary Location: RUQ abdominal wall Frequency: once daily Measurement: 1.2cm X 1.2cm X 1.0cm, cruciate incision clean based, minimal purulent drainage, 2cm of surrounding erythema Instructions: 1/2" idodoform packing, 4X4 gauze sponges and tape Discharge panning with VNS or by patient Code(s): L02.229 - FURUNCLE OF TRUNK, UNSPECIFIED (2) Obesity (BMI 30.0-34.9) Code(s): E66.9 - OBESITY, UNSPECIFIED (3) Vertigo Code(s): R42 - DIZZINESS AND GIDDINESS (4) HTN (hypertension) Code(s): I10 - ESSENTIAL (PRIMARY) HYPERTENSION Qualifiers: Hypertension type: essential hypertension Qualified Code(s): I10 - Essential (primary) hypertension (5) HLD (hyperlipidemia) Code(s): E78.5 - HYPERLIPIDEMIA, UNSPECIFIED
[2018-02-11] MEDS ORDERED: PT OWN MED DRAWER 7, Y5N ONE (05:43)
[2018-02-11 05:44] VITALS: TEMP 98.6
[2018-02-11] MEDS: HEPARIN NA (PORCINE) 5,000 UNITS/ML 1ML VIAL SQ SCH (06:05)
[2018-02-11 09:35] VITALS: BP 137/71; PULSE 74
[2018-02-11] MEDS: amLODIPine BESYLATE 2.5 MG TABLET (FP) PO SCH (09:44)
--- NOTE | 2018-02-11 09:58 | PN ---
Teaching Attending Note Name of Resident: Gilda Stoner ATTENDING PHYSICIAN STATEMENT I saw and evaluated the patient. I reviewed the resident's note and discussed the case with the resident. I agree with the resident's findings and plan as documented. SUBJECTIVE:asymptomatic. pain controlled with pain medication. denie cp, SOB< fever, chill, N/V/C/D OBJECTIVE: Last Vital Signs Temp Pulse Resp BP Pulse Ox 98.6 F 74 18 137/71 96 02/11/18 09:35 02/11/18 09:35 02/11/18 09:35 02/11/18 09:35 02/11/18 05:42 General NAD abdomen soft RUQ with 1x1cm incision with minimal surrounding erythema. no pus or drainage noted ASSESSMENT AND PLAN: 82yo F wtih PMH HTN, dyslipiemia, brain aneurysm s/p clipping x2 presented tot he ER with RUQ pain which started as a pimple then progressively worsened 1. RUQ abscess- due to initial pimple. s/p bedside I&D 02/09. clinically imrpoved. wound looks well with no drainage. packing was not removed. Wound cx no growth a this point. will be d/c with clinda x7days and follow up with surgeon. wound instructions on d/c paperwork. will need VNS to help with wound packing. 2. New onset murmur- mild-mod and AR. will need surveillance echo as outpatient 3. +UA- asymptomatic. will not start abx at this time 4. HTN- controlled 5. dyslipidemai- on statin 6. Osteoporosis- on fosamax weekly 7. DVT ppx- hep sq 8. d/c home. spoke with daughter over the phone regarding discharge and followup. stressed importance of good hygiene and wound care. and need for repeat echo. has appt with pmd in 2 weeks
[2018-02-11] MEDS: oxyCODONE HCL 5 MG TABLET PO PRN (11:12)
== END 2018-02-11 12:16 | disposition home health service (06) ==
LOC: JER 14:57 → JERBED 18:07 → J5S 20:40
PROVIDERS: ADMIT Internal Medicine; ATTEND Internal Medicine
PROC: 0H97XZZ Drainage of Abdomen Skin, External Approach (ICD-10-PCS; principal; 2018-02-08)
PROC: 3E03329 Introduction of Other Anti-infective into Peripheral Vein, Percutaneous Approach (ICD-10-PCS; 2018-02-08)
PROC: 3E033GC Introduction of Other Therapeutic Substance into Peripheral Vein, Percutaneous Approach (ICD-10-PCS; 2018-02-08)
PROC: 3E013GC Introduction of Other Therapeutic Substance into Subcutaneous Tissue, Percutaneous Approach (ICD-10-PCS; 2018-02-08)
DX: L02.231 Carbuncle of abdominal wall (principal); L02.221 Furuncle of abdominal wall; I10 Essential (primary) hypertension; E78.5 Hyperlipidemia, unspecified; E66.9 Obesity, unspecified; Z68.31 Body mass index [BMI] 31.0-31.9, adult; R42 Dizziness and giddiness; R01.1 Cardiac murmur, unspecified; R82.90 Unspecified abnormal findings in urine
CPT/HCPCS: 10160; 36415; 71046-TC-FY; 80053; 81003; 81015; 83605; 85025; 85610; 86850; 86870; 86900; 86901; 86902; 87040; 87070; 87086; 87186; 87205; 93005; 93010; 93306-TC; 96372; 96374; 96375; 99283-25; G0378; J1644